=== PATIENT | female | born 1995 | race African-American/Black ===

== ENCOUNTER 2019-10-24 02:54 | Emergency (ER) | payer BC ==
[~2019-10-24] VITALS: Ht 154.9 cm; Wt 59.0 kg
--- NOTE | 2019-10-24 03:24 | Emergency Room Report ---
History of Present Illness General Chief Complaint: Nausea, Vomiting, and Diarrhea Source: Patient, Family Member Present Illness HPI This 24-year-old female with a history of type 2 diabetes. She presents with chief complaint of feeling sick. Onset for last 24 hours. She has nausea vomiting diarrhea. Unable to keep anything down. No fever chills. Has generalized weakness. Worse with exertion. Patient has not taken her metformin for over a month. According to father, she was admitted last year for DKA. Father said that she is not insulin. He does not believe in "medicines ". He believes that the holistic approach. He was giving her cinnamon, honey and adry to help with her diabetes. Allergies: Coded Allergies: No Known Allergies (Unverified , 10/24/19) Patient History Past Medical History: see triage record, old chart reviewed, DM Past Surgical History: none Pertinent Family History: none Social History: Denies: smoking Last Menstrual Period: UNK Now: No : 0 Para: 0 Immunizations: other Reviewed Nursing Documentation: PMH: Agreed; PSxH: Agreed Nursing Documentation-PMH Past Medical History: No History, Except For Hx Cardiac Problems: No Hx Hypertension: No Hx Pacemaker: No Hx Asthma: No Hx COPD: No Hx Diabetes: Yes Hx Cancer: No Hx Gastrointestinal Problems: No Hx Dialysis: No History Of Psychiatric Problem: No Hx Neurological Problems: No Hx Cerebrovascular Accident: No Hx Seizures: No Review of Systems Constitutional: Reports: weakness Eye: Denies: eye pain, blurred vision ENT: Denies: ear pain, nose congestion, throat swelling Respiratory: Denies: cough, shortness of breath Cardiovascular: Denies: chest pain, palpitations Gastrointestinal: Reports: diarrhea, nausea, vomiting; Denies: abdominal pain Musculoskeletal: Denies: back pain, joint pain Skin: Denies: rash Neurological: Denies: headache, numbness Endocrine: Denies: increased thirst, increased urine Hematologic/Lymphatic: Denies: easy bruising All Other Systems: negative except mentioned in HPI Physical Exam Vital Signs Date Time Temp Pulse Resp B/P (MAP) Pulse Ox O2 Delivery O2 Flow Rate FiO2 10/24/19 03:00 97.3 80 18 125/98 (107) 97 Room Air Vitals with tachycardia. Pulse 130 Sp02 EP Interpretation: reviewed, normal General Appearance: no apparent distress, alert, moderate distress, thin, other - Ill-appearing Head: normocephalic, atraumatic Eyes: bilateral eye PERRL, bilateral eye EOMI ENT: hearing grossly normal, normal pharynx, dry mucus membranes Neck: full range of motion, supple, no meningismus Respiratory: chest non-tender, lungs clear, normal breath sounds Cardiovascular #1: regular rate, rhythm, no murmur, tachycardia Gastrointestinal: normal bowel sounds, non tender, no mass, no organomegaly, no bruit, non-distended Musculoskeletal: back normal, normal range of motion, gait/station normal Psychiatric: mood/affect normal Procedures Critical Care Time Critical Care Time Critical care is mandated in this patient who presented with hyperosmolar syndrome from diabetes. Patient require my urgent intervention to attenuate the risks of metabolic collapse which may lead to cardiovascular collapse and . Critical care time is 35 minutes excluding any reportable procedure. Critical care time included evaluation, multiple reevaluation, looking at old charts, interpreting laboratory and diagnostic data, discussing case with patient and family and consultants, and charting. Medical Decision Making Diagnostic Impression: Primary Impression: Hyperosmolar non-ketotic state in patient with type 2 diabetes mellitus Additional Impressions: ARF (acute renal failure) Qualified Codes: N17.9 - Acute kidney failure, unspecified Dehydration Hypomagnesemia Nausea, vomiting, and diarrhea Medically noncompliant ER Course Patient presents with a hyperosmolar nonketotic hyperglycemia. She was very dehydrated. Took 4 L of IV fluid before she is able to urinate. Heart rate improved but still tachycardic. No evidence of DKA. No evidence of any infection. I discussed the case with Dr. Luong at [facility]. He accepted patient for transfer there. EKG Diagnostic Results Rate: tachycardiac Rhythm: NSR ST Segments: no acute changes Rhythm Strip Diag. Results EP Interpretation: yes Rate: 125 Rhythm: NSR, no PVC's, no ectopy Last Vital Signs Date Time Temp Pulse Resp B/P (MAP) Pulse Ox O2 Delivery O2 Flow Rate FiO2 10/24/19 03:00 97.3 80 18 125/98 (107) 97 Room Air Status: improved Disposition: XFER SHT-TRM HOSP Condition: Stable [facility] Giovanny Welch MD Oct 24, 2019 03:24
[2019-10-24 03:28] LABS: HEMATOCRIT 41.1 % (37.0-47.0); HEMOGLOBIN 13.7 G/DL (12.0-16.0); MEAN CORPUSCULAR VOLUME 87 FL (80-99); PLATELET COUNT 313 K/UL (150-450); RED BLOOD COUNT 4.75 M/UL (4.20-5.40)
--- NOTE | 2019-10-24 03:28 | NUR ---
ED Nurse Note: pt presents to ED c/o N/V/D that started 5 hours ago. her most recent episode of diarrhea occured during triage, pt was unable to make it to the restroom. the BM appears to be mostly liquid with a few small pieces. pt states that she has DM type 2 that she takes metformin for but that she has not been taking it for a month because her "dad doesn't like it" and he gives her a "holistic remedy" instead for the DM. pt has been hospitalized once in the past for DKA. she does not recall how many episodes of vomiting or diarrhea she has had today. pt also c/o back px
--- NOTE | 2019-10-24 03:29 | NUR ---
ED Nurse Note: upon initial exam, gabriel is tachy at 130, her oral mucous membranes appear dry, AOx4 but tearful and restless. Addendum: 10/24/19 at 0412 by ARIAN pt has dry skin and rashes to her upper forehead, scalp and area around her nose. some of the skin is broken and are healing scars. pt states that the rashes started when she was diagnosed with type 2 DM in october 2018.
[2019-10-24 03:30] VITALS: BP 125/98
[2019-10-24 03:45] LABS: ALANINE AMINOTRANSFERASE 27 U/L (12-78); ALBUMIN 3.5 G/DL (3.4-5.0); ALBUMIN/GLOBULIN RATIO 0.7 (1.0-2.7); ALKALINE PHOSPHATASE 83 U/L (46-116); ANION GAP 18 mmol/L (5-15); ASPARTATE AMINO TRANSFERASE 20 U/L (15-37); BILIRUBIN,TOTAL 0.3 MG/DL (0.2-1.0); BLOOD UREA NITROGEN 34 mg/dL (7-18); CALCIUM 9.7 MG/DL (8.5-10.1); CARBON DIOXIDE 21 MMOL/L (21-32); CHLORIDE 92 MMOL/L (98-107); CREATININE 1.8 MG/DL (0.55-1.30); POTASSIUM 4.2 MMOL/L (3.5-5.1); SODIUM 131 MMOL/L (136-145)
--- NOTE | 2019-10-24 03:49 | NUR ---
ED Nurse Note: pt's blood glucose is 691, ERMD aware
--- NOTE | 2019-10-24 03:50 | NUR ---
ED Nurse Note: pt's father is at bedside. he informed us that the holistic regimen pt has been on includes cinammon and garlic but they have not measured her glucose levels since they stopped the metformin.
--- NOTE | 2019-10-24 04:10 | NUR ---
ED Nurse Note: pt reports feeling like she has a yeast infection, she states that her vagina is itchy and red and that there is a "bread-like" odor coming from it. notified ELMER
[2019-10-24] MEDS ORDERED: Insulin Human Regular 100units/ml 3ml IV ONE (04:30)
[2019-10-24 04:45] LABS: APPEARANCE,URINE CLEAR; BILIRUBIN, URINE NEGATIVE (NEGATIVE); COLOR,URINE PALE YELLOW; GLUCOSE, URINE (UA) 4+ (NEGATIVE); KETONES,URINE 2+ (NEGATIVE); LEUKOCYTE ESTERASE ,URINE NEGATIVE (NEGATIVE); NITRITE,URINE NEGATIVE (NEGATIVE); PH,URINE 5 (4.5-8.0); PROTEIN,URINE 2+ (NEGATIVE); UROBILINOGEN,URINE NORMAL MG/DL (0.0-1.0)
[2019-10-24 04:55] VITALS: BP 119/80
[2019-10-24 05:41] LABS: ANION GAP 13 mmol/L (5-15); BLOOD UREA NITROGEN 27 mg/dL (7-18); CALCIUM 6.9 MG/DL (8.5-10.1); CARBON DIOXIDE 20 MMOL/L (21-32); CHLORIDE 109 MMOL/L (98-107); CREATININE 1.3 MG/DL (0.55-1.30); POTASSIUM 3.9 MMOL/L (3.5-5.1); SODIUM 142 MMOL/L (136-145)
[2019-10-24] MEDS ORDERED: 1/2NS w/KCl 20mEq 1000ml 1,000 ML IV SCH (06:00)
[2019-10-24] MEDS ORDERED: Acetaminophen 500mg (ES) tab ORAL ONE (06:15)
[2019-10-24 06:20] VITALS: BP 102/65
--- NOTE | 2019-10-24 06:26 | NUR ---
ED Nurse Note: pt is in bed, with her father at bedside. she does not appear to be in any distress at this time. breathing is even and unlabored, VSS, pt is still tachy, ERMD is aware of this. will continue to monitor
--- NOTE | 2019-10-24 07:16 | NUR ---
HAND-OFF: Report given to OSMANI Landin.
--- NOTE | 2019-10-24 07:20 | NUR ---
ED Nurse Note: Reports received. pt lying in bed comfortably. pt on the phone. tachycardia noted. 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 it decreased to 124 from 135. dad at the bed side. will wait for the transportation.
[2019-10-24 07:30] VITALS: BP 89/51
--- NOTE | 2019-10-24 07:40 | NUR ---
ED Nurse Note: bp decreased to 89/51 mmHg with HR 117. Dr. Bhatia notified. started NS, 200ml/hr as ordered.
--- NOTE | 2019-10-24 08:34 | NUR ---
ED Nurse Note: Reports given to Lucretia Santos at [facility].
[2019-10-24 08:41] VITALS: BP 90/58
--- NOTE | 2019-10-24 08:41 | NUR ---
ED Nurse Note: pt transfer to [facility] by [facility] [id number].
== END 2019-10-24 08:44 | disposition short-term general hospital (02) ==
LOC: EMR 03:18
DX: E11.00 Type 2 diabetes mellitus with hyperosmolarity without nonketotic hyperglycemic-hyperosmolar coma (NKHHC) (principal); N17.9 Acute kidney failure, unspecified; E86.0 Dehydration; E83.42 Hypomagnesemia; R11.2 Nausea with vomiting, unspecified; R19.7 Diarrhea, unspecified; Z91.14 Patient's other noncompliance with medication regimen
CPT/HCPCS: 36415; 80048; 80053; 80307; 81003; 81025; 82009; 82962; 83036; 83735; 85025; 93005; 96361; 96374; 96375; 99291; J1815; J2405